=== PATIENT | female | born 1970 ===

== ENCOUNTER → 2018-11-06 | Outpatient (CLI) | payer OTHER ==
--- NOTE | 2018-11-06 14:03 | RAD ---
Ultrasound-guided right breast biopsy, 11/06/2018: History: Suspicious breast nodule Previous imaging demonstrated a suspicious hypoechoic nodule at the 1:00 location in the right breast. Under local anesthesia, aseptic conditions and sonographic guidance the [employer] biopsy instrument was passed into the posterior aspect of this nodule via a medial approach. Multiple 12-gauge vacuum-assisted core samples were obtained and sent to pathology for evaluation. A biopsy marker was then deposited at the biopsy site. The biopsy instrument was removed and hemostasis obtained. Two-view postprocedural mammograms were then obtained to document position of the biopsy marker. It lies within the targeted nodule. The patient tolerated the procedure well and left the department in good condition. The pathology results are pending. An addendum report will be issued when the pathology results are available for correlative purposes.
--- NOTE | 2018-11-10 17:07 | PATHOLOGY ---
[facility] Accession Number: [id number] . 01 Material submitted: . RIGHT BREAST, 10:00, 5CMFN . 01 Clinical history: . Right breast mass . 02 Diagnosis: Breast tissue, right breast mass needle biopsies: - INVASIVE DUCTAL CARCINOMA WITH APOCRINE FEATURES, MODERATELY TO POORLY DIFFERENTIATED. SEE COMMENT. 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 - Sclerosing adenosis, multifocal, with focal microcalcifications. (JPM:dinkey engine firer/fireman; 11/10/2018) MBR/11/10/2018 . 02 Comment: Sections of the right breast mass needle biopsies reveal an invasive ductal carcinoma with apocrine features. The tumor cells have abundant eosinophilic granular cytoplasm, and possess enlarged nuclei containing prominent nucleoli. The tumor shows little tubule formation, moderate to marked nuclear atypia, and several mitotic figures. Invasive carcinoma measures up to 0.7 cm in greatest dimension on the glass slide. In section A1, there is focal high-grade ductal carcinoma in situ of cribriform type showing apocrine features. There is no lymphovascular tumor invasion. Elsewhere, the biopsy shows multifocal sclerosing adenosis with several scattered microcalcifications. . The case is also examined by Dr. Reyes, who concurs with the diagnosis. Breast prognostic studies will be obtained on block A1, the results of which will be reported separately. . (JPM:dinkey engine firer/fireman; 11/10/2018) . 02 Electronically signed: . Jacek Zaman MD, Pathologist NPI- [id number] . 01 Gross description: . The specimen is received in formalin, labeled "Agnieszka Ramos, right breast, 10:00 5 cm from nipple", are several fibrofatty cores and its fragments measuring 1.7 x 0.7 x 0.3 cm in aggregate. The specimen is entirely submitted in A1-A3. Specimen excised at: 0130 on 11/06/18, placed in formalin at: 0135 on 11/06/18, formalin fixation: Approximately 10 hours and 5 minutes. (SWS; 11/07/2018) SHS/SHS . 02 Pathologist provided ICD-10: C50.911, N60.21 . 02 CPT . 276454 Specimen Comment: A courtesy copy of this report has been sent to Specimen Comment: [phone]. Specimen Comment: Report sent to Performed at: 01 [facility] [address], [place], [place] [id number] MD Riley Feliciano MD Phone: [phone] Performed at: 02 [facility] [address], [place] [id number] MD Jacek Zaman MD Phone: [phone]
== END | disposition home or self-care (01) ==
LOC: EDUNIT# 10-08 10:00 → US 12:54
PROVIDERS: ATTEND Nurse Practitioner Family
DX: C50.211 Malignant neoplasm of upper-inner quadrant of right female breast (principal); N60.21 Fibroadenosis of right breast; Z88.6 Allergy status to analgesic agent; Z90.710 Acquired absence of both cervix and uterus
CPT/HCPCS: 19083; 77065; C1713; 19081; 76942; 88305; 88361; 88377